=== PATIENT | male | born 1950 | race Caucasian/White ===

== ENCOUNTER 2017-04-04 20:21 | Observation (INO) | payer MEDICARE, OTHER ==
[2017-04-04] MEDS ORDERED: ASPIRIN 81 MG TABLET, CHEWABLE PO ONE (21:38)
--- NOTE | 2017-04-04 21:39 | ER Document Report ---
ED Medical Screen (RME) - General Chief Complaint: Arrhythmia Stated Complaint: IRREGULAR HEART BEAT Time Seen by Provider: 04/04/17 21:37 Mode of Arrival: Wheelchair Information source: Patient Notes: Patient is a 67-year-old male with A. fib on metoprolol and losartan who presents to the ER today for elevated blood pressure of over 180s systolically and "going into A. fib today." Patient states that he has never had to see anybody because of an episode but knows that he has A. fib. He denies any nausea or shortness of breath but does admit to some chest "soreness" around the left side only because of it. He has never had a stress test. TRAVEL OUTSIDE OF THE [place] IN LAST 30 DAYS: No - Related Data Allergies/Adverse Reactions: No Known Allergies Allergy (Verified 04/04/17 21:35) Past Medical History - General Information source: Patient - Past Medical History Cardiac Medical History: Reports: Hx Hypertension Denies: Hx Coronary Artery Disease - HX OF HIGH CHOLESTEROL, Hx Heart Attack Pulmonary Medical History: Denies: Hx Asthma, Hx Bronchitis, Hx COPD, Hx Pneumonia Neurological Medical History: Denies: Hx Cerebrovascular Accident, Hx Seizures Musculoskeltal Medical History: Reports Hx Arthritis - IN BACK Past Surgical History: Reports: Hx Orthopedic Surgery - back surgery x3 - Immunizations Hx Diphtheria, Pertussis, Tetanus Vaccination: Yes Review of Systems - Review of Systems Cardiovascular: See HPI Physical Exam - Vital signs Vitals: Temp Pulse Resp BP Pulse Ox 98.2 F 106 H 18 180/105 H 99 04/04/17 20:33 04/04/17 20:33 04/04/17 20:33 04/04/17 20:33 04/04/17 20:33 - Notes Notes: PHYSICAL EXAMINATION: GENERAL: Well-appearing and in no acute distress. LUNGS: CTAB and equal. No wheezes rales or rhonchi. HEART: Irregularly irregular without murmurs Course - Vital Signs Vital signs: Temp Pulse Resp BP Pulse Ox 98.2 F 106 H 18 180/105 H 99 04/04/17 20:33 04/04/17 20:33 04/04/17 20:33 04/04/17 20:33 04/04/17 20:33
[2017-04-04 22:42] LABS: ABSOLUTE BASOPHILS # (AUTO) 0.1 10^3/uL (0.0-0.2); ABSOLUTE EOSINOPHILS # (AUTO) 0.5 10^3/uL (0.0-0.6); ABSOLUTE LYMPHOCYTES (AUTO) 2.5 10^3/uL (0.5-4.7); ABSOLUTE MONOCYTES (AUTO) 0.5 10^3/uL (0.1-1.4); ABSOLUTE NEUT (AUTO) 2.9 10^3/uL (1.7-8.2); BASOPHILS % (AUTO) 1.7 % (0-2); EOSINOPHILS % (AUTO) 7.1 % (0-6); HEMATOCRIT 45.2 % (37.9-51.0); HEMOGLOBIN 15.3 g/dL (13.5-17.0); LYMPHOCYTES % (AUTO) 38.4 % (13-45); MEAN CORPUSCULAR HEMOGLOBIN 28.9 pg (27.0-33.4); MEAN CORPUSCULAR HGB CONC 33.8 g/dL (32.0-36.0); MEAN CORPUSCULAR VOLUME 86 fl (80-97); PLATELET COUNT 234 10^3/uL (150-450); RED BLOOD COUNT 5.28 10^6/uL (4.35-5.55); RED CELL DISTRIBUTION WIDTH 13.4 % (11.5-14.0); SEGMENTED NEUTROPHILS % (AUTO) 44.8 % (42-78); TOTAL CELLS COUNTED % (AUTO) 100 %; WHITE BLOOD COUNT 6.6 10^3/uL (4.0-10.5)
[2017-04-04 22:57] LABS: ALANINE AMINOTRANSFERASE 37 U/L (21-72); ALBUMIN 4.7 g/dL (3.5-5.0); ALKALINE PHOSPHATASE 71 U/L (38-126); ANION GAP 8 (5-19); ASPARTATE AMINO TRANSFERASE 23 U/L (17-59); BILIRUBIN,DIRECT 0.2 mg/dL (0.0-0.4); BILIRUBIN,TOTAL 0.3 mg/dL (0.2-1.3); BLOOD UREA NITROGEN 17 mg/dL (7-20); CALCIUM 10.2 mg/dL (8.4-10.2); CARBON DIOXIDE 29 mmol/L (22-30); CHLORIDE 105 mmol/L (98-107); CREATINE KINASE 113 U/L (55-170); GLUCOSE 107 mg/dL (75-110); POTASSIUM 4.6 mmol/L (3.6-5.0); SODIUM 142.1 mmol/L (137-145); TOTAL PROTEIN 7.4 g/dL (6.3-8.2)
[2017-04-04 23:09] LABS: CREATINE KINASE MB 0.76 ng/mL (<4.55)
[2017-04-04 23:10] LABS: TROPONIN I < 0.012 ng/mL
--- NOTE | 2017-04-04 23:15 | EKG REPORT ---
SEVERITY:- ABNORMAL ECG - ATRIAL FLUTTER, A-RATE 288 : Confirmed by: Washington Casas 04-Apr-2017 23:15:32
--- NOTE | 2017-04-04 23:37 | RADIOLOGY REPORT (SQ) ---
EXAM DESCRIPTION: CHEST SINGLE VIEW CLINICAL HISTORY: 67 years, Male, a fib, chest pain, elevated bp COMPARISON: None. FINDINGS: Normal lung volume, clear parenchyma, normal cardiac silhouette, and intact bony thorax. IMPRESSION: No acute cardiopulmonary findings. 2011 [email or web address]- All Rights Reserved
[2017-04-04] MEDS ORDERED: NITROGLYCERIN 2% OINTMENT 1 GM PACKET TP ONE (23:38)
--- NOTE | 2017-04-04 23:38 | ER Document Report ---
ED Cardiac - General Chief Complaint: Arrhythmia Stated Complaint: IRREGULAR HEART BEAT Time Seen by Provider: 04/04/17 21:37 Mode of Arrival: Wheelchair TRAVEL OUTSIDE OF THE [place] IN LAST 30 DAYS: No - HPI Notes: 67-year-old male with history of paroxysmal A. fib and hypertension, on carvedilol and losartan who presents to the ER today for elevated blood pressure of over 180s systolically and "going into A. fib today." He denies any nausea, vomiting, diarrhea or shortness of breath but does admit to some chest "soreness" around the left side of his chest. He has been seen by a mortgage consultant in [place]. He has had echocardiogram but has never had a stress test. His palpitations did not seem exceptionally fast. He has not taken his medications tonight at this point. He currently takes aspirin but no other anticoagulants. - Related Data Allergies/Adverse Reactions: No Known Allergies Allergy (Verified 04/04/17 21:35) Past Medical History - General Information source: Patient - Social History Smoking Status: Never Smoker Chew tobacco use (# tins/day): Yes - 1 pack day Frequency of alcohol use: None Drug Abuse: None Family History: None Patient has suicidal ideation: No Patient has homicidal ideation: No - Past Medical History Cardiac Medical History: Reports: Hx Hypertension Denies: Hx Coronary Artery Disease - HX OF HIGH CHOLESTEROL, Hx Heart Attack Pulmonary Medical History: Denies: Hx Asthma, Hx Bronchitis, Hx COPD, Hx Pneumonia Neurological Medical History: Denies: Hx Cerebrovascular Accident, Hx Seizures Renal/ Medical History: Denies: Hx Peritoneal Dialysis Musculoskeltal Medical History: Reports Hx Arthritis - IN BACK Past Surgical History: Reports: Hx Orthopedic Surgery - back surgery x3 - Immunizations Hx Diphtheria, Pertussis, Tetanus Vaccination: Yes Review of Systems - Review of Systems -: Yes All other systems reviewed and negative Physical Exam - Vital signs Vitals: Temp Pulse Resp BP Pulse Ox 98.2 F 106 H 18 180/105 H 99 04/04/17 20:33 04/04/17 20:33 04/04/17 20:33 04/04/17 20:33 04/04/17 20:33 Interpretation: Hypertensive - Notes Notes: Physical Exam: GENERAL: VS as per nursing doc. Well-appearing, well-nourished and in no acute distress. HEAD: Atraumatic, normocephalic. EYES: Pupils equal round and reactive to light, extraocular movements intact, sclera anicteric, no conjunctival injection or discharge. ENT: Nares patent, oropharynx clear without exudates. Moist mucous membranes. NECK: Normal range of motion, supple without lymphadenopathy. No JVD. No Carotid Bruits. LUNGS: Breath sounds clear to auscultation bilaterally and equal. No wheezes rales or rhonchi. Chest nontender. HEART: Normal S1S2. Regular rate but irregularly irregular rhythm without murmurs. Equal peripheral pulses. ABDOMEN: Soft, non-tender. EXTREMITIES: Normal range of motion. No calf tenderness. Negative Homans. No edema. NEUROLOGICAL: Cranial nerves grossly intact. Normal sensory and motor exams. No gross cerebellar abnormalities. PSYCH: Normal mood, normal affect. SKIN: Warm, dry, no cyanosis, no splinter hemorrhages. Cap refill < 2 sec. Course - Vital Signs Vital signs: Temp Pulse Resp BP Pulse Ox 98.2 F 106 H 19 159/107 H 95 04/04/17 20:33 04/04/17 20:33 04/04/17 22:37 04/04/17 22:37 04/04/17 22:37 - Laboratory Result Diagrams: 04/04/17 22:26 04/04/17 22:26 Laboratory results interpreted by me: 04/04/17 22:26 Eosinophils % 7.1 H - EKG Interpretation by [place] Rate: Normal - Rate 97, atrial flutter. No clear ischemia. QRS normal duration. - Consults Dr. Bright Consulted provider: will see as inpatient - Tele/Obs Discharge - Discharge Clinical Impression: Chest pain, Atrial flutter Condition: Fair Disposition: ADMITTED OBSERVATION Admitting Provider: Deangelo Unit Admitted: Telemetry Referrals: JENNIFER HANNON MD [Primary Care Provider] - Follow up as needed
[2017-04-04] MEDS ORDERED: MAG HYDROX/AL HYDROX/SIMETH SUSP 30 ML UDCUP PO PRN (23:49)
[2017-04-04] MEDS ORDERED: MORPHINE SULFATE 10 MG/ML INJ IV PRN (23:49)
[2017-04-04] MEDS ORDERED: NITROGLYCERIN 0.4 MG/TAB 25 TAB/BOTTLE SL PRN (23:49)
[2017-04-04] MEDS ORDERED: KETOROLAC TROMETHAMINE INJ/PF 30 MG/1 ML SDV IV PRN (23:52)
[2017-04-04] MEDS ORDERED: ACETAMINOPHEN 325 MG TABLET PO PRN (23:52)
[2017-04-04] MEDS ORDERED: HYDRALAZINE HCL INJ/PF 20 MG/1 ML SDV IV PRN (23:52)
[2017-04-04] MEDS ORDERED: AMLODIPINE BESYLATE 5 MG TABLET PO ONE (23:53)
[2017-04-05] MEDS ORDERED: CARVEDILOL 12.5 MG TABLET PO ONE (01:00)
--- NOTE | 2017-04-05 01:45 | PDOC H&P ---
History of Present Illness Admission Date/PCP: 04/04/17 23:49 JENNIFER HANNON MD Patient complains of: Palpitations and chest pain History of Present Illness: SHIMA GRAVES SR is a 67 year old male with a past medical history of atrial fibrillation not on anticoagulation and hypertension. Patient presents with 12 hours of left-sided chest pain, palpitations and uncontrolled hypertension. He denies nausea vomiting shortness of breath or diaphoresis. Symptoms occurred while at rest, 3 out of 5 intensity, intermittent and nonradiating. He is currently pain-free. In the emergency room he is found to have rate controlled a flutter a blood pressure of 180/105 and otherwise unremarkable workup. Patient admits recent reduction of carvedilol by half and 6-8 caffeinated beverages per day. Past Medical History Cardiac Medical History: Reports: Atrial Fibrillation, Hypertension Denies: Coronary Artery Disease - HX OF HIGH CHOLESTEROL, Myocardial Infarction Pulmonary Medical History: Denies: Asthma, Bronchitis, Chronic Obstructive Pulmonary Disease (COPD), Pneumonia Neurological Medical History: Denies: Seizures Musculoskeltal Medical History: Reports: Arthritis - IN BACK Hematology: Denies: Anemia Past Surgical History Past Surgical History: Reports: Orthopedic Surgery - back surgery x3 Social History Information Source: Patient Lives with: Spouse/Significant other Smoking Status: Never Smoker Hx Recreational Drug Use: No Drugs: None - Advance Directive Resuscitation Status: Full Code Family History Family History: denies: CAD Parental Family History Reviewed: Yes Children Family History Reviewed: Yes Sibling(s) Family History Reviewed.: Yes Medication/Allergy Home Medications: Docusate Sodium [Colace 100 mg Capsule] 100 mg PO DAILY 10/09/13 Losartan Potassium [Cozaar] 100 mg PO DAILY 10/09/13 Allergies/Adverse Reactions: No Known Allergies Allergy (Verified 04/04/17 21:35) Review of Systems Constitutional: ABSENT: chills, fever(s), headache(s), weight gain, weight loss Eyes: ABSENT: visual disturbances Ears: ABSENT: hearing changes Cardiovascular: ABSENT: chest pain, dyspnea on exertion, edema, orthropnea, palpitations Respiratory: ABSENT: cough, hemoptysis Gastrointestinal: ABSENT: abdominal pain, constipation, diarrhea, hematemesis, hematochezia, nausea, vomiting Genitourinary: ABSENT: dysuria, hematuria Musculoskeletal: ABSENT: joint swelling Integumentary: ABSENT: rash, wounds Neurological: ABSENT: abnormal gait, abnormal speech, confusion, dizziness, focal weakness, syncope Psychiatric: ABSENT: anxiety, depression, homidical ideation, suicidal ideation Endocrine: ABSENT: cold intolerance, heat intolerance, polydipsia, polyuria Hematologic/Lymphatic: ABSENT: easy bleeding, easy bruising Physical Exam Vital Signs: Temp Pulse Resp BP Pulse Ox 98.2 F 106 H 20 126/90 H 94 04/04/17 20:33 04/04/17 20:33 04/05/17 01:03 04/05/17 01:03 04/05/17 01:03 General appearance: PRESENT: no acute distress, well-developed, well-nourished Head exam: PRESENT: atraumatic, normocephalic Eye exam: PRESENT: conjunctiva pink, EOMI, PERRLA. ABSENT: scleral icterus Ear exam: PRESENT: normal external ear exam Mouth exam: PRESENT: moist, tongue midline Neck exam: ABSENT: carotid bruit, JVD, lymphadenopathy, thyromegaly Respiratory exam: PRESENT: clear to auscultation batool. ABSENT: rales, rhonchi, wheezes Cardiovascular exam: PRESENT: irregular rhythm. ABSENT: diastolic murmur, rubs , systolic murmur Pulses: PRESENT: normal dorsalis pedis pul Vascular exam: PRESENT: normal capillary refill GI/Abdominal exam: PRESENT: normal bowel sounds, soft. ABSENT: distended, guarding, mass, organolmegaly, rebound, tenderness Rectal exam: PRESENT: deferred Extremities exam: PRESENT: full ROM. ABSENT: calf tenderness, clubbing, pedal edema Neurological exam: PRESENT: alert, awake, oriented to person, oriented to place , oriented to time, oriented to situation, CN II-XII grossly intact. ABSENT: motor sensory deficit Psychiatric exam: PRESENT: appropriate affect, normal mood. ABSENT: homicidal ideation, suicidal ideation Skin exam: PRESENT: dry, intact, warm. ABSENT: cyanosis, rash Results Impressions: Chest X-Ray 04/04/17 21:38 IMPRESSION: No acute cardiopulmonary findings. 2010 [employer]- All Rights Reserved Assessment & Plan - Diagnosis (1) Atrial flutter Is this a current diagnosis for this admission?: Yes Plan: Telemetry observation, optimize carvedilol dose, educate for caffeine reduction , TSH and serial cardiac enzymes. Consider outpatient stress test (2) Hypertension Is this a current diagnosis for this admission?: Yes Plan: KAUSHIK inhibitor, as needed hydralazine (3) Chest pain Is this a current diagnosis for this admission?: Yes Plan: Likely secondary to uncontrolled A. fib a flutter, follow-up serial cardiac enzymes, lipid profile and TSH. Consider outpatient stress test. - Time Time Spent: 50 to 70 Minutes
[2017-04-05 05:57] LABS: CHOLESTEROL 221.65 mg/dL (0-200); CREATINE KINASE 90 U/L (55-170); TRIGLYCERIDES 76 mg/dL (<150)
[2017-04-05 06:07] LABS: DIRECT LDL 171 mg/dL (<100)
[2017-04-05 06:08] LABS: CREATINE KINASE MB 0.55 ng/mL (<4.55)
[2017-04-05 06:12] LABS: TROPONIN I < 0.012 ng/mL
[2017-04-05] MEDS ORDERED: KETOROLAC TROMETHAMINE INJ/PF 30 MG/1 ML SDV IV PRN (09:30)
[2017-04-05] MEDS: DOCUSATE SODIUM 100 MG CAPSULE PO SCH ×2 (09:52→17:15)
[2017-04-05] MEDS: CARVEDILOL 12.5 MG TABLET PO SCH ×2 (09:52→23:08)
[2017-04-05] MEDS: ACETAMINOPHEN 325 MG TABLET PO PRN (11:06)
[2017-04-05] MEDS: ENALAPRIL MALEATE 2.5 MG TABLET PO SCH ×2 (11:45→23:08)
[2017-04-05 12:04] LABS: CREATINE KINASE MB 0.44 ng/mL (<4.55)
[2017-04-05 12:08] LABS: TROPONIN I < 0.012 ng/mL
[2017-04-05 18:00] LABS: CREATINE KINASE MB 0.28 ng/mL (<4.55)
[2017-04-05 18:03] LABS: TROPONIN I < 0.012 ng/mL
--- NOTE | 2017-04-05 18:26 | PDOC PROGRESS REPORT ---
Subjective Progress Note for:: 04/05/17 Subjective:: No complaints denies chest pain Reason For Visit: CHEST PAIN HTN AFLUTTER Physical Exam Vital Signs: Temp Pulse Resp BP Pulse Ox 98.2 F 66 18 104/51 L 97 04/05/17 14:53 04/05/17 14:53 04/05/17 14:53 04/05/17 14:53 04/05/17 14:53 Intake & Output 04/04/17 04/05/17 04/06/17 06:59 06:59 06:59 Intake Total 384 Output Total 425 Balance -41 Weight 99 kg General appearance: PRESENT: no acute distress, well-developed, well-nourished Head exam: PRESENT: atraumatic, normocephalic Ear exam: PRESENT: normal external ear exam Neck exam: ABSENT: tenderness, tracheal deviation Respiratory exam: PRESENT: clear to auscultation batool, unlabored Cardiovascular exam: PRESENT: RRR GI/Abdominal exam: PRESENT: normal bowel sounds, soft. ABSENT: tenderness Rectal exam: PRESENT: deferred Extremities exam: ABSENT: calf tenderness, pedal edema, tenderness Results Laboratory Results: 04/05/17 05:11 Triglycerides 76 Cholesterol 221.65 H LDL Cholesterol Direct 171 H VLDL Cholesterol 15.0 HDL Cholesterol 34 L 04/05/17 04/05/17 04/05/17 05:11 05:11 11:28 Creatine Kinase 90 CK-MB (CK-2) 0.55 0.44 Troponin I < 0.012 < 0.012 04/05/17 17:00 Creatine Kinase CK-MB (CK-2) 0.28 Troponin I < 0.012 Impressions: Chest X-Ray 04/04/17 21:38 IMPRESSION: No acute cardiopulmonary findings. 2010 [employer]- All Rights Reserved Assessment & Plan - Diagnosis (1) Atrial flutter Is this a current diagnosis for this admission?: Yes (2) Chest pain Is this a current diagnosis for this admission?: Yes (3) Hypertension Is this a current diagnosis for this admission?: Yes - Time Time Spent with patient: 15-24 minutes - Plan Summary Plan Summary: Awaiting stress test which was not done today due to weather conditions and absence of nuclear med staff.
[2017-04-05] MEDS ORDERED: ATORVASTATIN CALCIUM 80 MG TABLET PO ONE (23:45)
[2017-04-05] MEDS ORDERED: ENALAPRIL MALEATE 2.5 MG TABLET PO ONE (23:45)
[2017-04-06] MEDS ORDERED: ENALAPRIL MALEATE 2.5 MG TABLET PO SCH (10:00)
[2017-04-06] MEDS: CARVEDILOL 12.5 MG TABLET PO SCH (10:12)
[2017-04-06] MEDS: DOCUSATE SODIUM 100 MG CAPSULE PO SCH (10:12)
[2017-04-06] MEDS: ENALAPRIL MALEATE 2.5 MG TABLET PO SCH (10:13)
[2017-04-06] MEDS: ACETAMINOPHEN 325 MG TABLET PO PRN (10:14)
[2017-04-06] MEDS ORDERED: REGADENOSON INJ 0.4 MG/5 ML DISP.SYRIN IV ONE (13:42)
--- NOTE | 2017-04-06 13:54 | DRAGON STRESS TEST REPORT ---
Intravenous Lexiscan Cardiolite stress test using single photon emmision computerized tomography. Date of procedure: 04/06/2017. Ordering Provider: Dr. Jeremi Bright. Patient's status: In Patient Indication: Chest pain. Coronary risk factors: Age, hypertension, and dyslipidemia. Patient also has a history of paroxysmal atrial fibrillation. Resting EKG: Sinus Bradycardia. Within Normal Limits. Stress EKG: No changes of ischemia. Reason for termination: Protocol. Conclusions: Normal EKG and hemodynamic response to IV Lexiscan. Nuclear data: At rest the patient was given 14.12 millicuries of technetium 99m sestamibi injected intravenously. As per protocol rest non gated SPECT images were obtained. Subsequently the patient was given intravenous Lexiscan at a dose of 0.4 mg in 5 mL intravenously, followed by flush with normal saline. Subsequently the stress dose of 43.4 millicuries of technetium 99m sestamibi was injected intravenously. As per protocol stress gated images were obtained. Nuclear interpretation: Review of images showed that this is a poor quality study, with there being liver and bowel contamination artifact of the inferior wall. There is a small area of perfusion defect in the stress images in the LV apex, which normalizes in perfusion in the rest images. This area has normal motion contraction and thickening the gated study. The rest of thel segments of the myocardium had normal perfusion at rest, and normal perfusion post stress with IV Lexiscan. All segments of the myocardium had normal motion, contraction, and thickening by gated study. T. I D. ratio was normal at 1.17. Computer read rest, and stress left ventricular ejection fraction were 48 %, and 62 %, respectively. Visually both the stress and rest ejection fractions were normal, and greater than 60 %. Conclusion: 1. There is scintigraphic evidence of Lexiscan induced myocardial ischemia involving a small area of the left ventricle apex. 2. There is no scintigraphic evidence of myocardial infarction/scar. Recommendations: 1. Aggressive treatment of coronary artery disease with aspirin, statin, nitrates, and beta blockers if no allergies or contraindications. 2.Aggressive risk factor modification, and treating the underlying co- morbidities. 3. Close cardiology outpatient follow-up, and if the patient has recurrence of chest pain or discomfort suggestive of typical or atypical angina, then would recommend cardiac catheterization to define coronary anatomy. [facility]
[2017-04-06] MEDS ORDERED: NITROGLYCERIN 0.4 MG/TAB 25 TAB/BOTTLE SL PRN (15:05)
[2017-04-06] MEDS ORDERED: ASPIRIN 325 MG TABLET, ENT COATED PO ONE (16:00)
[2017-04-06 17:20] VITALS: BP 111/59
[2017-04-06] MEDS ORDERED: ATORVASTATIN CALCIUM 80 MG TABLET PO SCH (22:00)
[2017-04-06] MEDS ORDERED: METOPROLOL TARTRATE 25 MG TABLET PO SCH (22:00)
[2017-04-07] MEDS ORDERED: ENALAPRIL MALEATE 2.5 MG TABLET PO SCH (10:00)
[2017-04-07] MEDS ORDERED: ASPIRIN 325 MG TABLET, ENT COATED PO SCH (10:00)
[2017-04-07] MEDS ORDERED: ISOSORBIDE MONONITRATE 30 MG TAB.ER.24H PO SCH (10:00)
--- NOTE | 2017-04-07 10:19 | EKG REPORT ---
SEVERITY:- NORMAL ECG - SINUS RHYTHM : Confirmed by: Washington Casas 07-Apr-2017 10:18:40
--- NOTE | 2017-04-07 13:54 | PDOC DISCHARGE SUMMARY ---
General - Admit/Disc Date/PCP Admission Date/Primary Care Provider: 04/04/17 23:49 JENNIFER HANNON MD [employer] Music Operator: Dr. Nesbitt Discharge Date: 04/06/17 - Discharge Diagnosis (1) Atrial flutter Is this a current diagnosis for this admission?: Yes (2) Chest pain Is this a current diagnosis for this admission?: Yes Summary: Likely due to CAD with elevated ventricular rate in atrial flutter (3) Hypertension Is this a current diagnosis for this admission?: Yes - Additional Information Resuscitation Status: Full Code Discharge Diet: As Tolerated Discharge Activity: Activity As Tolerated, Balance Activity w/Rest Prescriptions: Atorvastatin Calcium [Lipitor 80 mg Tablet] 80 mg PO QHS 30 Days #30 tablet Nitroglycerin [Nitrostat 0.4 mg (1/150 Gr) Tabs 25/Bottle] 1 tab SL Q5MP PRN 30 Days #30 bottle PRN Reason: Aspirin [Ecotrin 325 mg EC Tablet] 325 mg PO DAILY 90 Days #90 tabec Enalapril Maleate [Vasotec 2.5 mg Tablet] 2.5 mg PO DAILY 30 Days #30 tablet Isosorbide Mononitrate [Imdur 30 mg Tablet.er] 30 mg PO DAILY 30 Days #30 tab.er.24h Metoprolol Tartrate [Lopressor 25 mg Tablet] 12.5 mg PO Q12 30 Days #60 tablet Home Medications: Docusate Sodium [Colace 100 mg Capsule] 100 mg PO DAILY 10/09/13 Aspirin [Ecotrin 325 mg EC Tablet] 325 mg PO DAILY 90 Days #90 tabec 04/06/17 Atorvastatin Calcium [Lipitor 80 mg Tablet] 80 mg PO QHS 30 Days #30 tablet Enalapril Maleate [Vasotec 2.5 mg Tablet] 2.5 mg PO DAILY 30 Days #30 tablet Isosorbide Mononitrate [Imdur 30 mg Tablet.er] 30 mg PO DAILY 30 Days #30 tab.er.24h 04/06/17 Metoprolol Tartrate [Lopressor 25 mg Tablet] 12.5 mg PO Q12 30 Days #60 tablet 04/06/17 Nitroglycerin [Nitrostat 0.4 mg (1/150 Gr) Tabs 25/Bottle] 1 tab SL Q5MP PRN 30 Days #30 bottle 04/06/17 History of Present Illness History of Present Illness: See Below Hospital Course Hospital Course: 67 year old male with a past medical history of atrial fibrillation not on anticoagulation and hypertension. Patient presents with 12 hours of left-sided chest pain, palpitations and uncontrolled hypertension. He denies nausea vomiting shortness of breath or diaphoresis. Symptoms occurred while at rest, 3 out of 5 intensity, intermittent and nonradiating. In the emergency room he was found to have rate controlled a flutter a blood pressure of 180/105 and otherwise unremarkable workup. He admitted to recent reduction of carvedilol by half and 6-8 caffeinated beverages per day. Remain stress-free during his hospital stay. Stress test showed scintigraphic evidence of Lexiscan induced myocardial ischemia involving a small area of the left ventricle apex with no scintigraphic evidence of myocardial infarction or scar. The recommendations were aggressive treatment of coronary artery disease with aspirin and statin nitrates and beta blockers and aggressive risk factor modification and treatment of underlying comorbidities. He will need close outpatient cardiology follow-up. His Coreg was replaced with metoprolol. Given prescription for indoor. Vasotec was reduced to 2.5 daily. He was also given a prescription for sublingual nitroglycerin and started on atorvastatin 80 mg daily. Physical Exam Vital Signs: Temp Pulse Resp BP Pulse Ox 97.1 F 68 18 111/59 L 100 04/06/17 17:17 04/06/17 17:17 04/06/17 17:17 04/06/17 17:17 04/06/17 17:17 Intake & Output 04/06/17 04/07/17 04/08/17 06:59 06:59 06:59 Intake Total 1366 354 Output Total 2575 Balance -1209 354 General appearance: PRESENT: no acute distress Respiratory exam: PRESENT: clear to auscultation batool, unlabored Cardiovascular exam: PRESENT: RRR GI/Abdominal exam: PRESENT: normal bowel sounds, soft. ABSENT: tenderness Rectal exam: PRESENT: deferred Results Laboratory Results: 04/05/17 04/05/17 04/05/17 05:11 05:11 11:28 Creatine Kinase 90 CK-MB (CK-2) 0.55 0.44 Troponin I < 0.012 < 0.012 04/05/17 17:00 Creatine Kinase CK-MB (CK-2) 0.28 Troponin I < 0.012 Impressions: Chest X-Ray 04/04/17 21:38 IMPRESSION: No acute cardiopulmonary findings. 2011 [employer]- All Rights Reserved Plan Time Spent: Greater than 30 Minutes
== END 2017-04-06 18:17 | disposition home or self-care (01) ==
LOC: ER 20:21 → EH 23:49 → 4N 04-05 03:21
PROVIDERS: ADMIT Internal Medicine; ATTEND Internal Medicine
DX: I48.92 Unspecified atrial flutter (principal); R07.9 Chest pain, unspecified; I10 Essential (primary) hypertension; I48.0 Paroxysmal atrial fibrillation; F17.210 Nicotine dependence, cigarettes, uncomplicated; Z79.899 Other long term (current) drug therapy
CPT/HCPCS: 93005 ×2; 99285; 36415 ×2; 82553 ×2; 82550 ×2; 84443; 85025; 80053; 84484 ×2; 80061; 93017; 71045; 78452; 93010 ×2; G0378 ×3; A9500; J2785; J3490 ×2; Q9969